=== PATIENT | female | born 1950 | race Caucasian/White ===

== ENCOUNTER 2018-05-13 10:29 | Emergency (ER) | payer OTHER ==
[~2018-05-13] VITALS: Ht 167.6 cm; Wt 65.8 kg
[2018-05-13 10:29] VITALS: BP 115/77
== END 2018-05-13 12:40 | disposition home or self-care (01) ==
LOC: ER 10:34
DX: M79.672 Pain in left foot (principal); Z88.2 Allergy status to sulfonamides
CPT/HCPCS: 73660; 99284; A4606; Z7610